=== PATIENT | male | born 1950 ===

== ENCOUNTER → 2017-04-20 | Outpatient (REF) | payer MEDICARE | LOC: M LAB REF 12:02 | PROVIDERS: ATTEND Internal Medicine | DX: E78.5 Hyperlipidemia, unspecified (principal) ==

== ENCOUNTER → 2018-06-16 | Outpatient (REF) | payer MEDICARE ==
[2018-06-18 08:06] LABS: LDL DIRECT 78 mg/dL (0-99)
== END ==
LOC: M LAB REF 16:42
DX: E78.5 Hyperlipidemia, unspecified (principal)
CPT/HCPCS: 83721